=== PATIENT | male | born 1940 | race Caucasian/White ===

== ENCOUNTER 2017-01-03 08:04 | Outpatient (CLI) | payer MEDICARE ==
--- NOTE | 2017-01-03 09:39 | CT ---
CT ABDOMEN AND PELVIS WITH AND WITHOUT CONTRAST: Multiple axial tomograms were obtained through the abdomen and pelvis without IV enhancement. This wa s followed by post contrast images performed in the portal venous and delayed venous phase following urographic protocol. History: Hematuria. Comparison: CT chest dated 11-05-14. FINDINGS: Lung bases are clear. Review of the urinary tract on the precontrast study shows no evidence of hydronephrosis. There is no evidence of urinary tract calculus. No hydronephrosis. Bladder is mildly distended and appears unrem arkable. On the post contrast images the kidneys show equal function. There is a cystic lesion in the superior right kidney measuring 2.5 cm and there is a 1.2 cm cyst in the lateral right renal cortex. No evidence of enhancing mass. On the delayed sequence there is contrast opacification in the bladde r. No evidence of mucosal abnormality identified. The liver, spleen, and pancreas appear unremarkable. Adrenal glands are unremarkable. Bowel loops appear normal. Prostate is not significantly enlarged. No adenopathy. Aorta shows atheros clerotic change but no evidence of aneurysmal dilatation. There is dense calcification at the origin of the superior mesenteric artery which could indicate significant stenosis. IMPRESSION: 1. There are two small cysts involving the right kidney. No enhancing renal mass identified. No other urinary tract abnormality. 2. CT abdomen and pelvis otherwise unremarkable. POS: [facility]
== END 2017-01-03 08:05 | disposition home or self-care (01) ==
LOC: CT 08:04
PROVIDERS: ATTEND Urology
DX: R31.0 Gross hematuria (principal); N28.1 Cyst of kidney, acquired
CPT/HCPCS: 74178

== ENCOUNTER 2020-12-23 14:07 | Outpatient (CLI) | payer MEDICARE ==
[2020-12-23 15:25] LABS: Bilirubin Neg (Negative); Blood, Urine Negative (Negative); Clarity Clear (Clear); Glucose, Urine (Dipstick) Normal (Negative); Ketone, Urine Negative (Negative); Leukocyte Negative (Negative); Nitrite Negative (Negative); Protein, Urine (Dipstick) Negative (Neg-Trace); Urobilinogen Normal mg/dL (Less than 2)
[2020-12-23 15:27] LABS: #Eosinphils 0.2 10x3/uL (0.0-0.5); #Monocytes 0.6 10x3/uL (0.0-1.1); #Neutrophils 4.8 10x3/uL (1.5-8.4); %Basophils 0.3 % (0.0-2.0); %Lymphocytes 36.1 % (18.0-47.0); %Monocytes 6.3 % (0.0-10.0); Hemoglobin 13.6 g/dL (13.5-17.5); Mean Corpuscular HGB CONC 33.2 g/dL (32.0-36.0); Mean Corpuscular Hemoglobin 31.8 pg (27.0-33.0); Mean Corpuscular Volume 95.8 fl (81.2-95.1); Mean Platelet Volume 10.5 fl (7.4-10.4); Platelet Count 151 10x3/uL (150-450); RBC Distribution Width 12.9 % (11.5-14.5); Red Blood Cell (RBC) Count 4.28 10x6/uL (4.32-5.72); White Blood Cell (WBC) Count 8.8 10x3/uL (3.5-10.5)
[2020-12-23 15:39] LABS: Prothrombin Time 11.4 sec (9.5-12.1)
[2020-12-23 15:41] LABS: RBC/HPF None Seen HPF (0-3); Squamous Epithelial None Seen HPF (0-3); WBC/HPF None Seen HPF (0-3)
[2020-12-23 15:42] LABS: Bacteria/HPF None Seen HPF (None Seen); Mucous/LPF Rare LPF (<2+)
[2020-12-23 16:03] LABS: Anion Gap 15 mmol/L (10-20); BUN (Urea Nitrogen) 26 mg/dL (8.4-25.7); Calc. Creatinine Clearance 0 mL/min (70-130); Calcium 9.3 mg/dL (7.8-10.44); Carbon Dioxide 24 mmol/L (23-31); Chloride 106 mmol/L (98-107); Glucose 212 mg/dL (83-110); Sodium 140 mmol/L (136-145)
[2020-12-24 12:06] LABS: SARS-CoV-2 PCR by NAA Not Detected (NotDetected)
== END 2020-12-23 14:08 | disposition home or self-care (01) ==
LOC: LABBT 14:07
PROVIDERS: ATTEND Orthopaedic Surgery
DX: Z01.818 Encounter for other preprocedural examination (principal); M17.12 Unilateral primary osteoarthritis, left knee; Z20.822 Contact with and (suspected) exposure to COVID-19
CPT/HCPCS: 80048; 81001; 85025; 85610; 87081; 93005; U0003; U0005; 93010

== ENCOUNTER 2020-12-28 06:10 | Inpatient (IN) | payer MEDICARE ==
[2020-12-27 09:41] VITALS: BMI 32.5
[2020-12-28] MEDS ORDERED: Vancomycin 1.5 GRAM/300 ML BAG 1.5 GM in Premix Bag 1 BAG IVPB SCH (07:45)
[2020-12-28] MEDS ORDERED: ceFAZolin 2 GM/DEX 5% 100 ML BAG ONE (08:01)
[2020-12-28] MEDS ORDERED: Sodium Chloride 0.9% 100 ML ONE (08:01)
[2020-12-28] MEDS ORDERED: Tranexamic Acid 1,000 MG/10 ML VIAL ONE (08:01)
[2020-12-28] MEDS ORDERED: Midazolam HCl 2 mg/2 ml Vial ONE (08:06)
[2020-12-28] MEDS ORDERED: Fentanyl 100 MCG/2 ML VIAL ONE ×3 (08:06→11:23)
[2020-12-28] MEDS ORDERED: Ondansetron PF 4 MG/2 ML Vial IVP PRN ×2 (08:54→09:00)
[2020-12-28] MEDS ORDERED: HYDROcodone/Acetaminophen 10/325 mg Tablet PO PRN ×4 (08:54→09:00)
[2020-12-28] MEDS ORDERED: Promethazine HCl 25 MG/ML VIAL IM PRN ×2 (08:54→09:00)
[2020-12-28] MEDS ORDERED: diphenhydrAMINE 25 MG CAP PO PRN (08:54)
[2020-12-28] MEDS ORDERED: Fentanyl 100 MCG/2 ML VIAL SLOW IVP PRN ×2 (08:54→08:56)
[2020-12-28] MEDS ORDERED: Zolpidem Tartrate 5 MG TAB PO PRN ×2 (08:54→09:00)
[2020-12-28] MEDS ORDERED: Acetaminophen 325 MG TAB PO PRN (08:54)
[2020-12-28] MEDS ORDERED: traMADol HCl 50 MG TAB PO PRN ×2 (09:00)
[2020-12-28] MEDS ORDERED: Aspirin 81 mg Enteric Coated Tablet PO SCH (09:00)
[2020-12-28] MEDS ORDERED: Ropivacaine 0.2% 550 ML 550 ML NERVE BLCK SCH (09:00)
[2020-12-28] MEDS ORDERED: Sodium Chloride 0.9% 1,000 ML IV SCH (09:00)
[2020-12-28] MEDS ORDERED: Ketorolac Tromethamine 30 MG/ML VIAL IVP PRN (09:00)
[2020-12-28] MEDS ORDERED: Apixaban 5 MG TAB PO SCH (09:00)
[2020-12-28] MEDS ORDERED: Bupivacaine PF 0.5% 30 ML VIAL ONE (09:01)
[2020-12-28] MEDS ORDERED: PHENYLEPHRINE-NS 100 MCG/ML 10 ML SYRINGE ONE (09:18)
[2020-12-28] MEDS ORDERED: Ketorolac Tromethamine 30 MG/ML VIAL ONE (09:18)
[2020-12-28] MEDS ORDERED: Rocuronium Bromide 10 MG/ML (10ML VIAL) ONE (09:18)
[2020-12-28] MEDS ORDERED: Dexamethasone 20 MG/5 ML VIAL ONE (09:18)
[2020-12-28] MEDS ORDERED: Ondansetron PF 4 MG/2 ML Vial ONE (09:18)
[2020-12-28] MEDS ORDERED: Bupivacaine HCl 0.5%/Epinephrine 1:200,000/PF 30 ml Vial ONE (09:18)
[2020-12-28] MEDS ORDERED: PROPOFOL 200 MG/20 ML VIAL ONE (09:18)
[2020-12-28] MEDS: Metoprolol Tartrate 25 MG TAB PO SCH ×2 (14:45→20:34)
[2020-12-28] MEDS: Ramipril 5 MG CAP PO SCH (14:45)
[2020-12-28] MEDS ORDERED: metFORMIN XR 500 MG TAB PO SCH (17:00)
[2020-12-28] MEDS ORDERED: metFORMIN 500 MG TAB PO SCH (17:00)
[2020-12-28] MEDS ORDERED: ceFAZolin Sodium/D5W 2 GM in Premix Bag 1 BAG IVPB SCH (17:00)
[2020-12-28] MEDS: Aspirin 81 mg Enteric Coated Tablet PO SCH (20:33)
[2020-12-28] MEDS ORDERED: CEFAZOLIN 2 GM, Admixture Fee 1 EACH in Sodium Chloride 0.9% 100 ML IVPB SCH (23:59)
[2020-12-29 05:58] LABS: Hemoglobin 12.3 g/dL (14.0-18.0); Mean Corpuscular HGB CONC 33.6 g/dL (32.0-36.0); Mean Corpuscular Hemoglobin 32.3 pg (27.0-31.0); Mean Platelet Volume 7.8 fL (7.4-10.4); Platelet Count 133 thou/uL (130-400); Red Blood Cell (RBC) Count 3.81 mill/uL (4.70-6.10)
[2020-12-29] MEDS ORDERED: Ferrous Gluconate 324 MG TAB PO SCH (08:00)
[2020-12-29] MEDS ORDERED: metFORMIN XR 500 MG TAB PO SCH (08:00)
[2020-12-29] MEDS ORDERED: Potassium Citrate 10 MEQ TAB PO SCH (08:00)
[2020-12-29] MEDS ORDERED: Multivitamin W/ Minerals 1 TAB PO SCH (09:00)
[2020-12-29] MEDS ORDERED: Senokot S 8.6-50 MG TAB PO SCH (09:00)
[2020-12-29] MEDS: Metoprolol Tartrate 25 MG TAB PO SCH (09:22)
[2020-12-29] MEDS: Ramipril 5 MG CAP PO SCH (09:24)
[2020-12-29] MEDS: Aspirin 81 mg Enteric Coated Tablet PO SCH ×2 (09:25→09:27)
[2020-12-29] MEDS: Rosuvastatin 10 MG TAB PO SCH ×2 (09:25→09:27)
[2020-12-29] MEDS: Loratadine 10 MG TAB PO SCH ×2 (09:26→09:27)
[2020-12-29] MEDS: Tamsulosin HCl 0.4 MG CAP PO SCH (09:26)
[2020-12-29] MEDS: Furosemide 20 MG TAB PO SCH ×2 (09:26)
[2020-12-29] MEDS ORDERED: CEFAZOLIN 2 GM, Admixture Fee 1 EACH in Sodium Chloride 0.9% 100 ML IVPB SCH (11:00)
[2020-12-29 11:42] VITALS: BP 133/55; TEMP 98.7
[2020-12-29] MEDS ORDERED: Apixaban 5 MG TAB PO SCH (21:00)
== END 2020-12-29 14:45 | disposition home or self-care (01) | DRG 470 ==
LOC: SDC 06:10 → SURG B 08:54 → SDC 15:25 → SURG B 15:26
PROVIDERS: ADMIT Orthopaedic Surgery; ATTEND Hospitalist
PROC: 0SRD0J9 Replacement of Left Knee Joint with Synthetic Substitute, Cemented, Open Approach (ICD-10-PCS; principal; 2020-12-28)
DX: M17.12 Unilateral primary osteoarthritis, left knee (principal); I10 Essential (primary) hypertension; E11.9 Type 2 diabetes mellitus without complications; I48.91 Unspecified atrial fibrillation; I25.10 Atherosclerotic heart disease of native coronary artery without angina pectoris; Z88.5 Allergy status to narcotic agent; Z88.8 Allergy status to other drugs, medicaments and biological substances; Z79.82 Long term (current) use of aspirin; Z79.899 Other long term (current) drug therapy; Z95.5 Presence of coronary angioplasty implant and graft; Z79.01 Long term (current) use of anticoagulants
CPT/HCPCS: 36415; 85027; A4306; C1713; J0690; J1100; J1885; J2250; J2405; J2704; J2795; J3010; J3370; J3490; J7050; S0020

== ENCOUNTER 2021-06-16 10:40 | Outpatient (CLI) | payer MEDICARE ==
[2021-06-16 11:45] LABS: #Eosinphils 0.1 10x3/uL (0.0-0.5); #Monocytes 0.5 10x3/uL (0.0-1.1); #Neutrophils 5.1 10x3/uL (1.5-8.4); %Basophils 0.4 % (0.0-2.0); %Eosinophils 1.2 % (0.0-6.0); %Lymphocytes 36.6 % (18.0-47.0); %Monocytes 5.6 % (0.0-10.0); Hemoglobin 14.1 g/dL (13.5-17.5); Mean Corpuscular HGB CONC 33.7 g/dL (32.0-36.0); Mean Corpuscular Hemoglobin 31.3 pg (27.0-33.0); Mean Corpuscular Volume 93.1 fl (81.2-95.1); Mean Platelet Volume 10.4 fl (7.4-10.4); Platelet Count 151 10x3/uL (150-450); RBC Distribution Width 13.2 % (11.5-14.5); White Blood Cell (WBC) Count 9.1 10x3/uL (3.5-10.5)
[2021-06-16 12:03] LABS: INR-International Normal Ratio 1.1; Prothrombin Time 11.4 sec (9.5-12.1)
[2021-06-16 12:05] LABS: Anion Gap 15 mmol/L (10-20); BUN (Urea Nitrogen) 25 mg/dL (8.4-25.7); Calc. Creatinine Clearance 0 mL/min (70-130); Calcium 9.6 mg/dL (7.8-10.44); Carbon Dioxide 28 mmol/L (23-31); Chloride 102 mmol/L (98-107); Glucose 218 mg/dL (83-110); Potassium 5.6 mmol/L (3.5-5.1); Sodium 139 mmol/L (136-145)
[2021-06-16 22:43] LABS: SARS-CoV-2 PCR by NAA Not Detected (NotDetected)
== END 2021-06-16 10:41 | disposition home or self-care (01) ==
LOC: LABBT 10:40
PROVIDERS: ATTEND Orthopaedic Surgery
DX: Z01.812 Encounter for preprocedural laboratory examination (principal); M17.11 Unilateral primary osteoarthritis, right knee; Z20.822 Contact with and (suspected) exposure to COVID-19
CPT/HCPCS: 80048; 85025; 85610; 87081; U0003; U0005

== ENCOUNTER 2021-06-21 08:32 | Observation (INO) | payer MEDICARE ==
[2021-06-16 10:39] VITALS: BMI 33.9
[2021-06-21] MEDS ORDERED: Tranexamic Acid 1,000 MG/10 ML VIAL ONE (09:01)
[2021-06-21] MEDS ORDERED: Vancomycin (BATCH) 1.5 GRAM/300 ML BAG ONE (09:01)
[2021-06-21] MEDS ORDERED: Sodium Chloride 0.9% 100 ML ONE (09:01)
[2021-06-21] MEDS ORDERED: Bupivacaine PF 0.5% 30 ML VIAL ONE (09:43)
[2021-06-21] MEDS ORDERED: fentaNYL Citrate/PF 100 MCG/2 ML SYRINGE ONE ×2 (09:54→11:25)
[2021-06-21] MEDS ORDERED: Clindamycin/D5W 600 mg/50 ml Premix Bag ONE (10:20)
[2021-06-21] MEDS ORDERED: Lidocaine 1% PF 5 ML VIAL ONE (10:55)
[2021-06-21] MEDS ORDERED: Esmolol 100 MG/10 ML VIAL ONE (10:55)
[2021-06-21] MEDS ORDERED: Bupivacaine HCl 0.5%/Epinephrine 1:200,000/PF 30 ml Vial ONE (10:55)
[2021-06-21] MEDS ORDERED: Ondansetron PF 4 MG/2 ML Vial ONE (10:55)
[2021-06-21] MEDS ORDERED: PROPOFOL 200 MG/20 ML VIAL ONE (10:55)
[2021-06-21] MEDS ORDERED: Glycopyrrolate 0.2 MG/ML 5 ML SYRINGE ONE (10:55)
[2021-06-21] MEDS ORDERED: Dexamethasone 20 MG/5 ML VIAL ONE (10:55)
[2021-06-21] MEDS ORDERED: PHENYLEPHRINE-NS 100 MCG/ML 10 ML SYRINGE ONE (10:55)
[2021-06-21] MEDS ORDERED: Fentanyl 100 MCG/2 ML VIAL IV PRN (11:09)
[2021-06-21] MEDS ORDERED: traMADol HCl 50 MG TAB PO PRN ×2 (11:15)
[2021-06-21] MEDS ORDERED: Ropivacaine 0.2% 550 ML 550 ML NERVE BLCK SCH (11:15)
[2021-06-21] MEDS ORDERED: Ketorolac Tromethamine 30 MG/ML VIAL IVP PRN (11:15)
[2021-06-21] MEDS ORDERED: HYDROcodone/Acetaminophen 10/325 mg Tablet PO PRN ×2 (11:15)
[2021-06-21] MEDS ORDERED: Ondansetron PF 4 MG/2 ML Vial IVP PRN ×2 (11:15→12:22)
[2021-06-21] MEDS ORDERED: Promethazine HCl 25 MG/ML VIAL IM PRN ×2 (11:15→12:22)
[2021-06-21] MEDS ORDERED: Zolpidem Tartrate 5 MG TAB PO PRN ×2 (11:15→12:22)
[2021-06-21] MEDS ORDERED: SUGAMMADEX SODIUM 200 MG/2 ML VIAL ONE (12:03)
[2021-06-21] MEDS ORDERED: ROPIVACAINE 0.2% NERVE BLCK SCH (12:15)
[2021-06-21] MEDS ORDERED: Acetaminophen 325 MG TAB PO PRN (12:22)
[2021-06-21] MEDS ORDERED: diphenhydrAMINE 25 MG CAP PO PRN (12:22)
[2021-06-21] MEDS ORDERED: ceFAZolin (BATCH) 2 GM in Premix Bag 1 BAG IVPB SCH (17:00)
[2021-06-21] MEDS: CEFAZOLIN 2 GM in Sodium Chloride 0.9% 100 ML IVPB SCH (18:00)
[2021-06-21] MEDS: Sodium Chloride 0.9% 1,000 ML IV SCH ×2 (18:16→21:20)
[2021-06-21] MEDS: Senokot S 8.6-50 MG TAB PO SCH (20:46)
[2021-06-21] MEDS: Aspirin 81 mg Enteric Coated Tablet PO SCH (20:46)
[2021-06-21] MEDS: Ferrous Gluconate 324 MG TAB PO SCH (20:46)
[2021-06-22] MEDS: CEFAZOLIN 2 GM in Sodium Chloride 0.9% 100 ML IVPB SCH (02:44)
[2021-06-22] MEDS ORDERED: hydrALAZINE 20 MG/ML VIAL SLOW IVP PRN (03:49)
[2021-06-22 06:14] LABS: Hemoglobin 13.2 g/dL (14.0-18.0); Mean Corpuscular HGB CONC 33.2 g/dL (32.0-36.0); Mean Corpuscular Hemoglobin 32.4 pg (27.0-31.0); Mean Corpuscular Volume 97.5 fL (78.0-98.0); Mean Platelet Volume 7.7 fL (7.4-10.4); Platelet Count 156 thou/uL (130-400); RBC Distribution Width 12.3 % (11.5-14.5); Red Blood Cell (RBC) Count 4.09 mill/uL (4.70-6.10); White Blood Cell (WBC) Count 17.1 thou/uL (4.8-10.8)
[2021-06-22] MEDS: Sodium Chloride 0.9% 1,000 ML IV SCH (08:36)
[2021-06-22] MEDS: Ferrous Gluconate 324 MG TAB PO SCH (08:36)
[2021-06-22] MEDS: Aspirin 81 mg Enteric Coated Tablet PO SCH (08:36)
[2021-06-22] MEDS: Senokot S 8.6-50 MG TAB PO SCH (08:37)
[2021-06-22 08:48] LABS: Anion Gap 15 mmol/L (10-20); BUN (Urea Nitrogen) 20 mg/dL (8.4-25.7); Calc. Creatinine Clearance 68 mL/min (70-130); Calcium 9.3 mg/dL (7.8-10.44); Carbon Dioxide 23 mmol/L (23-31); Chloride 102 mmol/L (98-107); Glucose 172 mg/dL (83-110); Potassium 4.4 mmol/L (3.5-5.1); Sodium 136 mmol/L (136-145)
[2021-06-22] MEDS ORDERED: Furosemide 20 MG TAB PO SCH (09:00)
[2021-06-22] MEDS ORDERED: Ramipril 5 MG CAP PO SCH (09:00)
[2021-06-22] MEDS ORDERED: Tamsulosin HCl 0.4 MG CAP PO SCH (09:00)
[2021-06-22] MEDS ORDERED: Meloxicam 15 MG TAB PO SCH (09:00)
[2021-06-22] MEDS ORDERED: Aspirin 81 mg Enteric Coated Tablet PO SCH (09:00)
[2021-06-22] MEDS ORDERED: Potassium Citrate 10 MEQ TAB PO SCH ×2 (09:00→10:30)
[2021-06-22] MEDS ORDERED: metFORMIN XR 500 MG TAB PO SCH (09:00)
[2021-06-22] MEDS ORDERED: Loratadine 10 MG TAB PO SCH (09:00)
[2021-06-22] MEDS ORDERED: Multivitamin W/ Minerals 1 TAB PO SCH (09:00)
[2021-06-22] MEDS ORDERED: HumaLOG 300 UNITS/3 ML VIAL SC PRN ×2 (09:01)
[2021-06-22] MEDS ORDERED: Dextrose 50% Abboject 50 ML SYRINGE SLOW IVP PRN (09:01)
[2021-06-22] MEDS ORDERED: Dextrose 5% in Water 1,000 ML IV PRN (09:01)
[2021-06-22 12:13] VITALS: BP 141/71; TEMP 98
[2021-06-22] MEDS ORDERED: Rosuvastatin 10 MG TAB PO SCH (21:00)
== END 2021-06-22 12:40 | disposition home health service (06) ==
LOC: SDC 08:32 → SURG B 12:22 → SDC 16:14 → SURG B 16:14
PROVIDERS: ADMIT Orthopaedic Surgery; ATTEND Orthopaedic Surgery
PROC: 0SRC0J9 Replacement of Right Knee Joint with Synthetic Substitute, Cemented, Open Approach (ICD-10-PCS; principal; 2021-06-21)
PROC: 8E0YXBZ Computer Assisted Procedure of Lower Extremity (ICD-10-PCS; 2021-06-21)
PROC: 3E0T3BZ Introduction of Anesthetic Agent into Peripheral Nerves and Plexi, Percutaneous Approach (ICD-10-PCS; 2021-06-21)
DX: M17.11 Unilateral primary osteoarthritis, right knee (principal); M21.161 Varus deformity, not elsewhere classified, right knee; I48.20 Chronic atrial fibrillation, unspecified; I10 Essential (primary) hypertension; E11.9 Type 2 diabetes mellitus without complications; E78.5 Hyperlipidemia, unspecified; I25.10 Atherosclerotic heart disease of native coronary artery without angina pectoris; N40.0 Benign prostatic hyperplasia without lower urinary tract symptoms; Z87.891 Personal history of nicotine dependence; Z79.01 Long term (current) use of anticoagulants; Z79.1 Long term (current) use of non-steroidal anti-inflammatories (NSAID); Z79.82 Long term (current) use of aspirin; Z79.84 Long term (current) use of oral hypoglycemic drugs; Z79.899 Other long term (current) drug therapy; Z88.5 Allergy status to narcotic agent; Z88.8 Allergy status to other drugs, medicaments and biological substances; Z95.5 Presence of coronary angioplasty implant and graft; Z96.652 Presence of left artificial knee joint
CPT/HCPCS: 20985; 27447; 64448; 73560; 80048; 82962; 85027; 97110 ×2; 97116 ×2; 97139; 97530; 98960; A4306; C1713; C1776; J3370; 36415; 36416; 96365; 96375; G0378; J1100; J1815; J2405; J2704; J2795; J3490; J7050; S0020